=== PATIENT | male | born 1985 | race Caucasian/White ===

== ENCOUNTER 2016-09-24 20:03 | Emergency (ER) | payer BC ==
[2016-09-24 20:50] VITALS: BP 136/78; PULSE 86; TEMP 98.6; BMI 35.3
--- NOTE | 2016-09-24 21:11 | PDOC ---
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 He reports that he was recently sick with flu like symptoms and took medications which relieved his symptoms. Shortly after he got a blister in his lip, which resolved and now has bee having the left eye rash for the past 3 days. He denies any other rashes. He denies any kind of pain. The patient denies chest pain, shortness of breath, headache and dizziness. Denies fever, chills, nausea, vomit, diarrhea and constipation. Allergies: Penicillin Past surgical history: None reported Social history: No alcohol, tobacco or drug use reported <Giovanny Perez - Last Filed: 09/24/16 21:56> <Neo Nunes - Last Filed: 09/25/16 02:04> - General Chief Complaint: Rash Stated Complaint: ALLERGIC REACTION Time Seen by Provider: 09/24/16 21:11 Past History <Giovanny Perez - Last Filed: 09/24/16 21:56> - Psycho/Social/Smoking Cessation Hx Anxiety: No Suicidal Ideation: No Smoking History: Never smoked Have you smoked in the past 12 months: No Information on smoking cessation initiated: No Hx Alcohol Use: No Drug/Substance Use Hx: No Substance Use Type: None <Neo Nunes - Last Filed: 09/25/16 02:04> - Past Medical History Allergies/Adverse Reactions: Allergies Allergy/AdvReac Type Severity Reaction Status Date / Time Penicillins Allergy Severe Swelling Verified 09/24/16 20:51 Home Medications: Ambulatory Orders Valacyclovir HCl [Valtrex] 1,000 mg PO TID #21 tablet 09/25/16 Review of Systems - Review of Systems Able to Perform ROS?: Yes Comments:: 09/24/16 21:55 GENERAL/CONSTITUTIONAL: No fever or chills. No weakness. HEAD, EYES, EARS, NOSE AND THROAT: +Left eye rash. No change in vision. No ear pain or discharge. No sore throat. CARDIOVASCULAR: No chest pain or shortness of breath RESPIRATORY: No cough, wheezing, or hemoptysis. GASTROINTESTINAL: No nausea, vomiting, diarrhea or constipation. GENITOURINARY: No dysuria, frequency, or change in urination. MUSCULOSKELETAL: No joint or muscle swelling or pain. No neck or back pain. SKIN: No rash NEUROLOGIC: No headache, vertigo, loss of consciousness, or change in strength/ sensation. ENDOCRINE: No increased thirst. No abnormal weight change HEMATOLOGIC/LYMPHATIC: No anemia, easy bleeding, or history of blood clots. ALLERGIC/IMMUNOLOGIC: No hives or skin allergy. <Giovanny Perez - Last Filed: 09/24/16 21:56> *Physical Exam - Vital Signs Last Vital Signs Temp Pulse Resp BP Pulse Ox 98.6 F 86 18 136/78 100 09/24/16 20:46 09/24/16 20:46 09/24/16 20:46 09/24/16 20:46 09/24/16 20:46 - Physical Exam Comments: 09/24/16 21:52 CONSTITUTIONAL: Well-appearing; well-nourished; in no apparent distress HEAD: Normocephalic; atraumatic ENMT: External appears normal; normal oropharynx NECK: Supple; non-tender; no cervical lymphadenopathy CARD: Normal S1, S2; no murmurs, rubs, or gallops RESP: Normal chest excursion with respiration; breath sounds clear and equal bilaterally; no wheezes, rhonchi, or rales ABD: Soft, non-distended; non-tender; no palpable organomegaly, no palpable hernias EXT: Normal ROM in all four extremities; non-tender to palpation; distal pulses intact SKIN: Warm, dry, no rash NEURO: No focal neurological deficiencies. <Giovanny Perez - Last Filed: 09/24/16 21:56> - Vital Signs Last Vital Signs Temp Pulse Resp BP Pulse Ox 98.6 F 86 18 136/78 100 09/24/16 20:46 09/24/16 20:46 09/24/16 20:46 09/24/16 20:46 09/24/16 20:46 - Physical Exam Comments: 09/24/16 21:52 EYES: OD: Visual acuity is 20/20; lids and adnexa are within normal limits; cornea and conjunctiva are unremarkable; extraocular movements intact; there is no increased fluoroscein uptake. OS: Visual acuity is 20/20; + numerous vesicular lesions to the upper and lower eyelids on an erythematous base consistent with herpes zoster; Cornea and conjunctiva are unremarkable; extraocular movements are intact; there is no increased fluoroscein uptake; + singular vesicular lesion to the tip of the nose; <Neo Nunes - Last Filed: 09/25/16 02:04> Medical Decision Making - Medical Decision Making 09/24/16 21:50 Patient is well-appearing 30-year-old male who presents with signs and symptoms of recurrent herpes zoster infection in the ER V2 dermatome. Slit-lamp exam reveals no evidence of corneal or conjunctival involvement. Visual acuity is 20/ 20. Patient will be discharged with Valtrex by mouth 3 times a day for 7 days with ophthalmology follow-up. <Neo Nunes - Last Filed: 09/25/16 02:04> *DC/Admit/Observation/Transfer - Attestations Scribe Attestion: 09/24/16 21:55 Documentation prepared by Giovanny Perez, acting as electromedical service engineer for Neo Nunes MD <Giovanny Perez - Last Filed: 09/24/16 21:56> <Neo Nunes - Last Filed: 09/25/16 02:04> Diagnosis at time of Disposition: Shingles Qualifiers: Herpes zoster complications: without complications Qualified Code(s): B02.9 - Zoster without complications - Discharge Dispostion Disposition: HOME Condition at time of disposition: Stable - Prescriptions Prescriptions: Valacyclovir HCl [Valtrex] 1,000 mg PO TID #21 tablet - Referrals Referrals: Fransisco Pickard MD [Staff Physician] - - Patient Instructions Printed Discharge Instructions: DI for Shingles Print Language: FABIÁN
[2016-09-24] MEDS ORDERED: FLUORESCEIN NA 1 EA STRIP ONE (21:30)
[2016-09-24] MEDS ORDERED: TETRACAINE 0.5% OPHTH SOLN 2 ML BOTTLE ONE (21:30)
== END 2016-09-24 21:53 | disposition home or self-care (01) ==
LOC: JER 20:03
DX: B02.9 Zoster without complications (principal)
CPT/HCPCS: 99281-25

== ENCOUNTER 2019-06-21 19:13 | Emergency (ER) | payer BC, OTHER ==
[2019-06-21] MEDS ORDERED: PENICILLIN G BENZATHINE 2,400,000 UNIT/4 ML PFS IM ONE (19:32)
--- NOTE | 2019-06-21 19:32 | PDOC ---
Rapid Medical Evaluation Time Seen by Provider: 06/21/19 19:28 Medical Evaluation: Allergies Allergy/AdvReac Type Severity Reaction Status Date / Time Penicillins Allergy Severe Swelling Verified 09/24/16 20:51 06/21/19 19:28 I have performed a brief in-person evaluation of this patient. 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 Discharge Disposition - Diagnosis Syphilis - Referrals - Patient Instructions - Post Discharge Activity
[2019-06-21 19:36] VITALS: BP 130/85; PULSE 93; TEMP 97.4; BMI 30.8
[2019-06-21] MEDS ORDERED: PENICILLIN G BENZATHINE 1,200,000 UNIT/2 ML PFS IM ONE (19:48)
--- NOTE | 2019-06-21 20:03 | PDOC ---
History of Present Illness - General Chief Complaint: Penile Drainage Stated Complaint: EVALUATION Time Seen by Provider: 06/21/19 19:28 - History of Present Illness Initial Comments: 06/21/19 20:01 33-year-old male presents for evaluation with a biopsy report from his addiction counselor showing a lesion on his penis with secondary syphilis he is here for a penicillin injection Past History - Past Medical History Allergies/Adverse Reactions: Allergies Allergy/AdvReac Type Severity Reaction Status Date / Time No Known Allergies Allergy Verified 06/21/19 19:34 Home Medications: Ambulatory Orders Valacyclovir HCl [Valtrex] 1,000 mg PO TID #21 tablet 09/25/16 - Psycho Social/Smoking Cessation Hx Smoking History: Never smoked Have you smoked in the past 12 months: No Hx Alcohol Use: No Drug/Substance Use Hx: No Substance Use Type: None Review of Systems - Review of Systems Constitutional: Yes: See HPI *Physical Exam - Vital Signs Last Vital Signs Temp Pulse Resp BP Pulse Ox 97.4 F L 93 H 18 130/85 98 06/21/19 19:34 06/21/19 19:34 06/21/19 19:34 06/21/19 19:34 06/21/19 19:34 - Physical Exam 06/21/19 20:01 GENERAL: The patient is awake, alert, and fully oriented, in no acute distress. HEAD: Normal with no signs of trauma. EYES: sclera anicteric, conjunctiva clear. ENT: Ears normal tympanic membranes normal oropharynx clear uvula midline External genitalia exam deferred secondary to biopsy report confirmation NEUROLOGICAL: Cranial nerves II through XII grossly intact. Normal speech, normal gait. PSYCH: Normal mood, normal affect. SKIN: Warm, Dry, normal turgor, no rashes or lesions noted. ED Treatment Course - Medications Given in the ED: ED Medications Discontinued Medications Generic Name Dose Route Start Last Admin Trade Name Freq PRN Reason Stop Dose Admin Penicillin G Benzathine 2,400,000 unit 06/21/19 19:32 06/21/19 19:53 Bicillin L-A - IM 06/21/19 19:33 2,400,000 unit ONCE ONE Administration Medical Decision Making - Medical Decision Making 06/21/19 20:02 2,400,000 units of penicillin was given intramuscularly one-time dose for treatment for secondary syphilis Discharge - Discharge Information Problems reviewed: Yes Clinical Impression/Diagnosis: Syphilis Condition: Stable Disposition: HOME - Admission No - Follow up/Referral - Patient Discharge Instructions Additional Instructions: Return to the emergency room for worsening symptoms and without fail follow-up with your primary care physician in 2 to 3 days for further evaluation and treatment options. You also should have further STD testing from your primary care physician. - Post Discharge Activity
== END 2019-06-21 20:37 | disposition home or self-care (01) ==
LOC: JERFT 19:13
DX: A53.9 Syphilis, unspecified (principal)
CPT/HCPCS: 99281-25

== ENCOUNTER 2019-06-27 18:45 | Emergency (ER) | payer OTHER ==
--- NOTE | 2019-06-27 18:59 | PDOC ---
Rapid Medical Evaluation Time Seen by Provider: 06/27/19 18:58 Medical Evaluation: Allergies Allergy/AdvReac Type Severity Reaction Status Date / Time No Known Allergies Allergy Verified 06/21/19 19:34 06/27/19 18:59 33-year-old male seen here last week for penile lesion secondary to syphilis, also treated with Valtrex. Returns because lesion is not healing. Denies fever, dysuria. Pertinent physical exam findings: Afebrile exam deferred I have ordered the following: None Patient to proceed to [facility] for further evaluation. Discharge Disposition - Diagnosis Penile lesion - Referrals - Patient Instructions - Post Discharge Activity
[2019-06-27 19:02] VITALS: BP 135/94; PULSE 97; TEMP 97.7; BMI 45.9
--- NOTE | 2019-06-27 20:01 | PDOC ---
History of Present Illness - General Chief Complaint: Penile Drainage Stated Complaint: STD CHECK UP Time Seen by Provider: 06/27/19 18:58 History Source: Patient - History of Present Illness Timing/Duration: reports: constant Past History - Past Medical History Allergies/Adverse Reactions: Allergies Allergy/AdvReac Type Severity Reaction Status Date / Time No Known Allergies Allergy Verified 06/27/19 19:00 Home Medications: Ambulatory Orders Valacyclovir HCl [Valtrex] 1,000 mg PO TID #21 tablet 09/25/16 Doxycycline Hyclate 100 mg PO BID #14 tablet 06/27/19 COPD: No - Psycho Social/Smoking Cessation Hx Smoking History: Never smoked Have you smoked in the past 12 months: No Hx Alcohol Use: No Drug/Substance Use Hx: No Substance Use Type: None Review of Systems - Review of Systems Constitutional: No: Chills, Fever ABD/GI: No: Nausea, Vomiting, Abdominal cramping : Yes: Lesions. No: Burning, Dysuria, Discharge, Flank Pain, Hematuria, Testicular Swelling, Testicular Pain Integumentary: No: Rash *Physical Exam - Vital Signs Last Vital Signs Temp Pulse Resp BP Pulse Ox 97.7 F 97 H 18 135/94 98 06/27/19 19:00 06/27/19 19:00 06/27/19 19:00 06/27/19 19:00 06/27/19 19:00 - Physical Exam General Appearance: Yes: Appropriately Dressed. No: Apparent Distress HEENT: positive: Normal Voice Neck: positive: Supple Respiratory/Chest: negative: Respiratory Distress Male Genitalia: positive: other (penile ulcer to shaft). negative: discharge, testicular mass, epididymus tender, inguinal hernia Lymphatic: negative: Adenopathy Integumentary: positive: Dry, Warm. negative: Rash Neurologic: positive: Fully Oriented, Alert, Normal Mood/Affect Medical Decision Making - Medical Decision Making 06/27/19 19:56 33-year-old male diagnosed with syphilis on biopsy by his [employer] erp developer 2 weeks ago and had presented to [facility] 1 week ago for tx, given standard pen injection and now here stating that he continues to have penile lesion. Not painful. Denies any other medical complaints at this time. States he tested negative for HIV and other STDs recentl. On exam patient has non-tender ulcer to penile shaft. Uncertain as to why symptoms continue despite treatment. Will dc with trial of 14 days of doxy and have patient follow-up with his [employer] [facility] developer for further evaluation Discharge - Discharge Information Problems reviewed: Yes Clinical Impression/Diagnosis: Penile lesion Condition: Good Disposition: HOME - Additional Discharge Information Prescriptions: Doxycycline Hyclate 100 mg PO BID #14 tablet - Follow up/Referral Referrals: Tiffanie Cody MD [Primary Care Provider] - - Patient Discharge Instructions Additional Instructions: Take antibiotics as directed and continue to follow-up with your [employer] [facility] developer - Post Discharge Activity
== END 2019-06-27 20:00 | disposition home or self-care (01) ==
LOC: JERFT 18:45
DX: N48.89 Other specified disorders of penis (principal); Z86.19 Personal history of other infectious and parasitic diseases
CPT/HCPCS: 99281-25

== ENCOUNTER 2020-01-12 16:05 | Emergency (ER) | payer OTHER ==
--- NOTE | 2020-01-12 16:14 | PDOC ---
Rapid Medical Evaluation Time Seen by Provider: 01/12/20 16:09 Medical Evaluation: Allergies Allergy/AdvReac Type Severity Reaction Status Date / Time No Known Allergies Allergy Verified 06/27/19 19:00 01/12/20 16:12 I performed a brief in-person evaluation of this patient. 34 y/o male with complaint of a cyst to the right groin. He states the cyst has been ongoing for the last 2 months. He denies any discharge. He denies any medical history. Pertinent physical exam findings: nontoxic, speaking in full sentences, groin exam deferred in triage. I have ordered the following: none Patient to proceed to ED for further evaluation. Discharge Disposition - Diagnosis Cyst - Referrals - Patient Instructions - Post Discharge Activity
[2020-01-12 16:19] VITALS: BP 109/83; PULSE 59; TEMP 98.5; BMI 48.6
--- NOTE | 2020-01-12 16:37 | PDOC ---
History of Present Illness - General Chief Complaint: Wound Stated Complaint: RT LEG PAIN Time Seen by Provider: 01/12/20 16:09 History Source: Patient Exam Limitations: Clinical Condition - History of Present Illness Initial Comments: 01/12/20 17:10 Morbidly obese patient presented with complaint of 2 months history of persistent abscess to right groin area which has not been improving. Patient reports seeing PCP last month for symptoms and will prescribe antibiotics which patient does not recall antibiotics he was given. Patient report abscess that hard induration to inner aspect of right groin area. Denies fever, chills, penile discharge, skin erythema. Denies any other symptoms Is this a multiple visit Asthma Patient?: No Timing/Duration: other (2 months) Past History - Medical History Allergies/Adverse Reactions: Allergies Allergy/AdvReac Type Severity Reaction Status Date / Time No Known Allergies Allergy Verified 01/12/20 16:15 Home Medications: Ambulatory Orders Valacyclovir HCl [Valtrex] 1,000 mg PO TID #21 tablet 09/25/16 Doxycycline Hyclate 100 mg PO BID #14 tablet 06/27/19 Mupirocin Ointment [Bactroban 2% Ointment -] 1 applic TP BID #1 tube 01/12/20 Sulfamethoxazole/Trimethoprim [Bactrim Ds -] 1 tab PO BID #14 tablet 01/12/20 COPD: No - Psycho-Social/Smoking History Smoking History: Never smoked Have you smoked in the past 12 months: No Information on smoking cessation initiated: No - Substance Abuse Hx (Audit-C & DAST Scrn) How often the patient has a drink containing alcohol: Never Score: In Men: 4 or > Positive; In Women: 3 or > Positive: 0 Screen Result (Pos requires Nsg. Audit-10AR): Negative In the last yr the pt used illegal drug/Rx for NonMed reason: No Score: Yes response is considered Positive: 0 Screen Result (Positive result requires Nsg. DAST-10): Negative Review of Systems - Review of Systems Able to Perform ROS?: Yes Is the patient limited Chinese proficient: No Constitutional: No: Chills, Fever, Malaise HEENTM: No: Symptoms Reported, See HPI, Eye Pain, Blurred Vision, Tearing, Recent change in vision, Double Vision, Cataracts, Ear Pain, Ocular Prothesis, Ear Discharge, Nose Pain, Nose Congestion, Tinnitus, Nose Bleeding, Hearing Loss, Throat Pain, Throat Swelling, Mouth Pain, Dental Problems, Difficulty Swallowing, Mouth Swelling, Other Respiratory: No: Symptoms reported, See HPI, Cough, Orthopnea, Shortness of Breath, SOB with Exertion, SOB at Rest, Stridor, Wheezing, Productive cough, Hemoptysis, Other ABD/GI: No: Symptoms Reported Musculoskeletal: No: Symptoms Reported Integumentary: Yes: Symptoms Reported, See HPI, Lumps (Right groin abscess). No: Erythema Neurological: No: Symptoms reported All Other Systems: Reviewed and Negative *Physical Exam - Vital Signs Last Vital Signs Temp Pulse Resp BP Pulse Ox 98.5 F 59 L 17 109/83 99 01/12/20 16:12 01/12/20 16:12 01/12/20 16:12 01/12/20 16:12 01/12/20 16:12 - Physical Exam General Appearance: Yes: Nourished, Appropriately Dressed. No: Apparent Distress HEENT: positive: Normal ENT Inspection Neck: positive: Supple Respiratory/Chest: negative: Lungs Clear, Normal Breath Sounds, Respiratory Distress, Accessory Muscle Use Musculoskeletal: positive: Normal Inspection Extremity: positive: Normal Inspection Integumentary: positive: Normal Color, Other (2 cm nonfluctuant hard induration to inner aspect of right groin area lateral to scrotum. No testicular pain or swelling). negative: Erythema Neurologic: positive: Fully Oriented, Alert, Normal Mood/Affect, Normal Response Medical Decision Making - Medical Decision Making 01/12/20 17:11 Morbidly obese patient presented with complaint of 2 months history of persistent abscess to right groin area which has not been improving. Patient reports seeing PCP last month for symptoms and will prescribe antibiotics which patient does not recall antibiotics he was given. Patient report abscess that hard induration to inner aspect of right groin area. Denies fever, chills, penile discharge, skin erythema. Denies any other symptoms Exam significant for 2 cm nonfluctuant hard induration to inner aspect of right groin area lateral to testicles without skin erythema or drainage from site. No testicular swelling. Patient symptoms likely folliculitis and patient advised not ready to be drained as its still hard. Patient stable for discharge on Bactrim antibiotics and topical Bactroban with advised to do hot compresses and follow-up in 3 to 4 days if no improvement for I&D. Patient voiced understanding agrees to follow-up instructions. Patient stable for discharge Discharge - Discharge Information Problems reviewed: Yes Clinical Impression/Diagnosis: Groin abscess Condition: Stable Disposition: HOME - Admission No - Additional Discharge Information Prescriptions: Sulfamethoxazole/Trimethoprim [Bactrim Ds -] 1 tab PO BID #14 tablet Mupirocin Ointment [Bactroban 2% Ointment -] 1 applic TP BID #1 tube - Follow up/Referral Referrals: Tiffanie Cody MD [Primary Care Provider] - - Patient Discharge Instructions Patient Printed Discharge Instructions: DI for Skin Abscess Additional Instructions: Take prescribed medication as prescribed. Apply hot compresses 2-3 times a day for 5 minutes to help with abscess. Follow-up in 3 to 4 days if no improvement for drainage - Post Discharge Activity
== END 2020-01-12 17:12 | disposition home or self-care (01) ==
LOC: JER 16:05
DX: L02.214 Cutaneous abscess of groin (principal)
CPT/HCPCS: 99283-25